=== PATIENT | female | born 1980 | race Hispanic/Latino ===

== ENCOUNTER → 2020-11-17 | Outpatient (CLI) | payer OTHER | END | disposition home or self-care (01) | LOC: RAH 07:32 | PROVIDERS: ATTEND Internal Medicine | DX: R10.9 Unspecified abdominal pain (principal); Z90.49 Acquired absence of other specified parts of digestive tract | CPT/HCPCS: 76700 ==

== ENCOUNTER → 2024-11-05 | Outpatient (CLI) | payer BC ==
--- NOTE | 2024-11-05 10:41 | HMCIMG ---
Esophagogram History: Esophageal obstruction/Dysphagia, unspecified Comparison: none Contrast: barium sulfate suspension, effervescent granules TECHNIQUE: EXAMINATION IS DONE UNDER FLUOROSCOPIC CONTROL, WITH FLUOROSCOPIC SPOTS OBTAINED. ALSO, OVERHEAD AP AND LATERAL VIEWS WERE OBTAINED. FINDINGS: Under fluoroscopic evaluation, the patient's esophagus demonstrates normal course, contour and caliber. Normal motility is seen. There is a small hiatal hernia. There is no evidence focal destructive lesion or stenosis or stricture. No neoplastic lesions identified or suspected. IMPRESSION: Small hiatal hernia. No reflux was seen during the exam.
== END | disposition home or self-care (01) ==
LOC: RAH 09:35
PROVIDERS: ATTEND Surgery
DX: K22.2 Esophageal obstruction (principal); K44.9 Diaphragmatic hernia without obstruction or gangrene; R13.10 Dysphagia, unspecified
CPT/HCPCS: 74220

== ENCOUNTER 2024-12-31 07:13 | Observation (INO) | payer BC ==
--- NOTE | 2024-12-29 08:44 | EKG ---
[facility] Test Date: 2024-12-29 Test Time: 08:37:18 Pat Name: JOSUÉ RAZA Department: [facility] Room: Gender: F Change Coordinator: [id number] : 1980 Requested By: AMI HINSON Order Number: [id number] Reading MD: Ami Ferris Measurements Intervals [place] Rate: 68 P: 41 [place]: 150 QRS: 18 QRSD: 87 T: -24 QT: 409 QTc: 436 Interpretive Statements Sinus rhythm No previous ECG available for comparison Electronically Signed On 12-29-2024 15:03:19 CDT by Ami Ferris Please click the below link to view image of tracing.
[2024-12-29 08:48] LABS: IMMATURE GRANULOCYTE ABSOLUTE 0.04 K/uL (0-1); NUCLEATED RED BLOOD CELLS 0.0 % (0.0-0.19); PLATELET COUNT (AUTO) 293 K/uL (130-400); RED BLOOD CELL COUNT(AUTO) 4.40 MIL/uL (4.00-5.50); RED CELL DISTRIBUTION WIDTH 22.1 % (11.0-15.5); WHITE BLOOD COUNT (AUTO) 10.1 K/uL (4.8-10.8)
[2024-12-29 08:56] VITALS: BP 125/63; PULSE 64; RESP 17; TEMP 98.1
[2024-12-29 09:00] LABS: CREATININE 0.6 mg/dL (0.5-1.0); GLOMERULAR FILTR. RATE CALC 115.0 mL/min (>90); GLUCOSE,RANDOM 111.0 mg/dL (70-105); SODIUM SERUM 135.0 mmol/L (136-145); UREA NITROGEN, BLOOD 7.0 mg/dL (7-18)
[2024-12-29 09:12] LABS: INR 0.96 (0.85-1.15)
--- NOTE | 2024-12-30 15:30 | NUR ---
RE: LABS REPORTED CBC RESULTS TO DR HINSON/NO. RECEIVED ORDERS FOR 2 UNITS PRBCS ON HOLD FOR OR.
[~2024-12-31] VITALS: Ht 157.5 cm; Wt 70.2 kg
[2024-12-31] VITALS (39 sets, daily range): BP systolic 90–141; BP diastolic 43–84; PULSE 56–107; RESP 9–20; TEMP 97–98.3; O2SAT 98–100
[2024-12-31] MEDS: LACTATED RINGERS 1000ML 1,000 ML IV ONE (09:00)
[2024-12-31] MEDS ORDERED: LIDOCAINE HCL MPF 1% 5ML VIAL ONE (09:43)
[2024-12-31] MEDS ORDERED: SUCCINYLCHOLINE CHLORIDE 20 MG/ML 10 ML VIAL ONE (09:43)
[2024-12-31] MEDS ORDERED: MIDAZOLAM HCL 1 MG/ML 2ML VIAL ONE (09:43)
[2024-12-31] MEDS ORDERED: GLYCOPYRROLATE 0.2 MG/ML 5 ML VIAL ONE (10:58)
[2024-12-31] MEDS ORDERED: NEOSTIGMINE METHYLSULFATE 1MG/ML IV ONE (10:58)
[2024-12-31] MEDS: ENOXAPARIN SODIUM 30 MG/0.3 ML SQ SCH (11:30)
[2024-12-31] MEDS ORDERED: HYDROcod/acetaMINOPHEN 7.5/325 MG 15 ML UDCUP PO PRN (11:30)
[2024-12-31] MEDS ORDERED: PROCHLORPERAZINE 10MG/2ML INJ IV PRN (11:30)
--- NOTE | 2024-12-31 16:10 | NUR ---
POST-OP: PT RECEIVED FROM [facility]. POST-OP VITALS STABLE. PT HAS NAUSEA AND WAS GIVEN ZOFRAN PRIOR TO TRANSFER. ABD INCISIONS INTACT WITH DERMABOND. PT AND DAUGHTER AT BEDSIDE. WILL CONTINUE TO MONITOR. CHARGE NURSE AWARE OF PT ARRIVAL.
--- NOTE | 2024-12-31 17:08 | PN ---
GENERAL SURGERY PROGRESS NOTE Date/Time Patient Seen: [12/31/2024 at 5:05 p.m.] Problem List: [ ] Interval History: [Postop day 0. Pain tolerable with p.r.n. medication. ] Current Medications Medications (Trade) Dose Ordered Sig/Herm[place] Route Start Time Stop Time Status Last Admin Dose Admin Enoxaparin Sodium (Lovenox) 30 mg BID SQ 12/31/24 11:30 01/30/25 11:29 Famotidine (Pepcid 20mg Vial) 20 mg BID IV 12/31/24 21:00 01/30/25 20:59 Lactated Ringer's 1,000 ml @ 150 mls/hr Q6H40M IV 12/31/24 11:30 01/30/25 11:29 Physical Examination: GENERAL: [No acute distress.] ABD: [Incisions clean, dry and intact, Dermabond in place Vital Signs (last 8hr) Date Time Temp Pulse Resp B/P (MAP) Pulse Ox O2 Delivery O2 Flow Rate FiO2 12/31/24 16:00 97.0 83 16 129/84 98 Room Air 12/31/24 15:30 79 18 127/73 97 Room Air 12/31/24 15:00 74 17 128/68 97 Room Air 12/31/24 14:45 97.5 75 16 124/72 96 Room Air 12/31/24 14:30 80 18 131/77 95 Room Air 12/31/24 14:15 81 16 141/69 95 Room Air 12/31/24 14:00 85 17 125/72 100 Nasal Cannula 2.0 12/31/24 13:45 77 16 133/67 98 Nasal Cannula 2.0 12/31/24 13:30 81 16 128/78 98 Nasal Cannula 2.0 12/31/24 13:15 84 17 129/67 99 Nasal Cannula 2.0 12/31/24 13:00 97.2 86 16 122/71 98 Nasal Cannula 2.0 12/31/24 12:45 86 17 127/67 100 Nasal Cannula 2.0 12/31/24 12:40 81 16 118/68 98 Nasal Cannula 2.0 12/31/24 12:35 85 15 133/70 99 Nasal Cannula 2.0 12/31/24 12:30 82 16 117/69 100 Nasal Cannula 2.0 12/31/24 12:25 83 17 115/72 99 Nasal Cannula 2.0 12/31/24 12:20 88 16 119/71 99 Nasal Cannula 3.0 12/31/24 12:15 83 17 118/66 97 Nasal Cannula 3.0 12/31/24 12:10 84 18 122/65 100 Nasal Cannula 3.0 12/31/24 12:05 82 17 121/61 100 Nonrebreathing Mask 10.0 100 12/31/24 12:00 76 12 121/66 100 Nonrebreathing Mask 10.0 12/31/24 11:55 74 11 115/66 100 Nonrebreathing Mask 10.0 12/31/24 11:50 79 12 96/47 100 Nonrebreathing Mask 10.0 12/31/24 11:45 97.5 70 9 90/43 100 Nonrebreathing Mask 10.0 Laboratory: [ ] Diagnostics / Radiology: [Copy/Paste Echos/Imaging Report here] Impression and Plan: [ Plan is for discharge home in the next day or two as long as patient tolerating p.o., ambulatory and pain under control. Discussed with patient and family. They understand and agree. ERIC HINSON Dec 31, 2024 17:08
--- NOTE | 2024-12-31 17:11 | OP ---
Operative Note: DATE OF PROCEDURE: 12/31/24 SURGEON: AMI HINSON MD [place] OPERATOR: Dotne Hinson MD PA-C ANESTHESIA: General and local ANESTHESIOLOGIST/DIALYSIS BIOMED TECHNIC[place] [facility] [place] PREOPERATIVE DIAGNOSIS: Symptomatic hiatal hernia POSTOPERATIVE DIAGNOSIS: As above SYNOPSIS: Hiatal hernia repair with mesh reinforcement and Jacy fundopli cation performed without complication PROCEDURE: 1. Robotic assisted hiatal hernia repair with mesh reinforcement 2. Jacy fundoplication 3. EGD ESTIMATED BLOOD LOSS: Minimal, less than 30 cc INDICATIONS: As above DESCRIPTION OF PROCEDURE: After standard precautions and preparations were undertaken a Veress needle and optical trocar were used to enter the abdominal cavity. All other instruments were placed under direct vision. The robotic system was docked in the standard fashion. We began our dissection by opening pars flaccida identifying the right tad of the diaphragm. From there we are able to enter into the mediastinum through a nearly avascular plane. We circumferentially mobilized the distal esophagus and proximal stomach with care taken to avoid any injury to the neurovascular bundles associated with the structures. We began our hiatal hernia repair by suturing the crura back in reapproximation starting at the crossing fibers in the retroesophageal space and working our way upwards towards the posterior esophageal wall. Care was taken not to over tighten. The hernia closure was reinforced utilizing a mesh. We used a two sided slowly absorbable Bard mesh product and sutured in place to prevent mesh migration and maximize contact with the tissue. The mesh was cut in a horseshoe fashion and placed as an overlay over our retroesophageal repair. We then mobilize the fundus and anticipation of the fundoplication. The fundus was pulled through the retroesophageal window and easily reached circumferentially allowing for Jacy type fundoplication. The fundoplasty was sutured in place for a craniocaudal distance of 3-1/2-4-1/2 cm. Throughout the case and again at the end my partner utilize the EGD scope to verify appropriate anatomic landmarks and ensured that the hernia repair was not overly tightened. At the end of the case a retroflex view demonstrated the wrap in place and the hernia repaired with no signs of over tightening or injury to the distal esophagus or proximal stomach. All instrument counts were verified as correct including needles and sponges. AMI HINSON MD Dec 31, 2024 17:11
[2024-12-31] MEDS: LACTATED RINGERS 1000ML 1,000 ML IV SCH (18:42)
[2024-12-31] MEDS: FAMOTIDINE 20MG VIAL IV SCH (20:17)
[2025-01-01 03:51] VITALS: BP 118/67; PULSE 89; RESP 16; TEMP 97.8
[2025-01-01 08:00] VITALS: BP 116/60; PULSE 81; RESP 19; TEMP 98.7
[2025-01-01 09:43] VITALS: O2SAT 98
[2025-01-01 11:26] VITALS: BP 133/81; PULSE 69; RESP 18; TEMP 98.6
[2025-01-01 16:00] VITALS: BP 135/80; PULSE 66; RESP 19
--- NOTE | 2025-01-01 16:23 | NUR ---
DCP:HOME Pt currently lives with sps and young dgt. Pt does not have any DME, home health, or provider services. Pt states that she is able to complete ADLs independently. PCP is Dr. Sofiya Bolivar and uses [facility] for any RX needs. At PA pt will want to go home and family can assist with transportation services. Addendum: 01/01/25 at 1624 by MARÍA MON SS Amended: Links added.
--- NOTE | 2025-01-01 16:58 | NUR ---
Patient is Endorsed to Nursing Pt is ambulating well in the [place] with family; PT to remove patient from roster. Addendum: 01/01/25 at 1659 by CHITO DE LEÓN PTA PT Amended: Links added.
--- NOTE | 2025-01-01 17:33 | DS ---
Discharge Summary Hospital Course Patient is s/p hiatal hernia repair with mesh reinforcement and lacy fundoplication. Patient's VSS. She is tolerating full liquid diet. No n/v. BBS are clear. Abdomen is soft and not distended. Active BS present. She is passing flatus. Abd incisions D&I potato grader with dermabond. Home care instructions with ER warnings given. She is to keep f/u appt on 01/07/15 at 3:15pm. Patient verbalized understanding and agreement. DX Diaphragmatic Hernia. Plan Discharge home f/u appt on 01/07/25 at 3:15pm. Encourage ambulation Encourage I/S exercises Please call [facility] for any questions, concerns, and change in status [phone] DAO WRIGHT NP Jan 01, 2025 17:33
--- NOTE | 2025-01-01 18:12 | NUR ---
DISCHARGE PIV DC'D DISCHARGE INSTRUCTIONS GIVEN TO PATIENT PATIENT AWARE OF FOLLOW UP APPOINTMENT PATIENT AWARE OF PRESCRIPTIONS BEING SENT TO HER PHARMACY ALL QUESTIONS ANSWERED PRIOR TO DISCHARGE
== END 2025-01-01 18:32 | disposition home or self-care (01) ==
LOC: DAH 07:13 → INTOOBSV 07:14 → DAHIP 07:14 → 3BH 16:10
PROVIDERS: ADMIT Surgery; ATTEND Surgery
DX: K44.9 Diaphragmatic hernia without obstruction or gangrene (principal); K22.2 Esophageal obstruction; R13.10 Dysphagia, unspecified; K29.50 Unspecified chronic gastritis without bleeding; K76.0 Fatty (change of) liver, not elsewhere classified; K21.9 Gastro-esophageal reflux disease without esophagitis; E78.5 Hyperlipidemia, unspecified; D64.9 Anemia, unspecified; K29.70 Gastritis, unspecified, without bleeding; Z79.899 Other long term (current) drug therapy; Z98.890 Other specified postprocedural states
CPT/HCPCS: 43282; S2900; 36415; 43235; 80048; 84703; 85025; 85610; 85730; 86850; 86900; 86901; 86923; 93005; 96372; 96374; 96375; 96376; G0378; J0330; J1650; J1885; J2250; J2405; J2704; J2710; J3010; J3490; J7120; A4215; A4216; A4221; A4222; A4223; A4600; A4663; A4930; A6260; C1781; J0665; J0690